=== PATIENT | female | born 1990 | race Caucasian/White ===

== ENCOUNTER 2018-09-06 08:29 | Inpatient (IN) | payer BC, MEDICAID ==
[2018-09-06] MEDS ORDERED: MINERAL OIL PO PRN (11:12)
[2018-09-06] MEDS ORDERED: BRETHINE SUB-Q PRN (11:12)
[2018-09-06] MEDS ORDERED: BRETHINE IVP PRN (11:12)
[2018-09-06] MEDS ORDERED: SUBLIMAZE IV PRN (11:12)
[2018-09-06 11:40] LABS: Hematocrit 31.6 % (30.3-42.9); Hemoglobin 11.1 gm/dl (10.1-14.3); Mean Corpuscular HGB Conc 35 % (30-34); Mean Corpuscular Volume 85 fl (79-97); Platelet Count 275 K/mm3 (140-440); Red Blood Count 3.71 M/mm3 (3.65-5.03); Red Cell Distribution Width 14.8 % (13.2-15.2)
[2018-09-06] MEDS ORDERED: PITOCin/NS 20 UNIT/1000ML DRIP 20 UNITS/1,000 ML BAG IV SCH (12:00)
[2018-09-06] MEDS ORDERED: PITOCin/NS 30 UNIT/500ML 30 UNITS/500 ML BAG IV SCH ×2 (12:00)
[2018-09-06] MEDS: LACTATED RINGERS 1,000 ML IV SCH ×2 (12:07→19:48)
[2018-09-06] MEDS ORDERED: XYLOCAINE 2% INFILTRATI ONE (12:12)
[2018-09-06] MEDS ORDERED: CERVIDIL VG ONE (12:12)
[2018-09-06] MEDS ORDERED: TYLENOL PO ONE (16:18)
--- NOTE | 2018-09-06 19:51 | History and Physical Report ---
History of Present Illness Date of examination: 09/06/18 Date of admission: 09/06/18 08:29 Chief complaint: 27yo Fe , SIVAN 09/12/2018 ([place]), 39w1d, presents to L&D for IOL. Initiated late care with life cycle Survey Operations Director from [facility]. Co-managed with [facility]. GDM. Diet controlled. 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 denies: smoking, alcohol abuse, prescription drug abuse, IV drug use - Obstetrical History Expected Date of Delivery: 09/12/18 Actual Gestation: 39 Week(s) 1 Day(s) : 1 Para: 0 Hx # Term Pregnancies: 0 Number of Pregnancies: 0 Spontaneous Abortions: 0 Induced : 0 Number of Living Children: 0 Medications and Allergies Allergies Allergy/AdvReac Type Severity Reaction Status Date / Time No Known Allergies Allergy Unverified 09/06/18 11:11 Home Medications Medication Instructions Recorded Confirmed Last Taken Type No Known Home Medications [No 09/06/18 09/06/18 Unknown History Reported Home Medications] Active Meds: Active Medications Butorphanol Tartrate (Stadol) 1 mg IV Q2H PRN PRN Reason: Pain, Moderate (4-6) Ephedrine Sulfate (Ephedrine Sulfate) 10 mg IV Q2M PRN PRN Reason: Hypotension Fentanyl (Sublimaze) 100 mcg IV Q2H PRN PRN Reason: Labor Pain Oxytocin/Sodium Chloride (Pitocin/Ns 20 Unit/1000ml Drip) 20 units in 1,000 mls @ 125 mls/hr IV DIRECT PAULO Oxytocin/Sodium Chloride (Pitocin/Ns 30 Unit/500ml) 30 units in 500 mls @ 1 mls/hr IV TITR PAULO; Protocol Oxytocin/Sodium Chloride (Pitocin/Ns 30 Unit/500ml) 30 units in 500 mls @ 2 mls/hr IV TITR PAULO; Protocol Lactated Ringer's (Lactated Ringers) 1,000 mls @ 125 mls/hr IV DIRECT PAULO Last Admin: 09/06/18 12:07 Dose: 125 mls/hr Documented by: Mineral Oil (Mineral Oil) 30 ml PO QHS PRN PRN Reason: Constipation Terbutaline Sulfate (Brethine) 0.25 mg SUB-Q ONCE PRN PRN Reason: Hyperstimulation/Hypertonicity Terbutaline Sulfate (Brethine) 0.25 mg IVP ONCE PRN PRN Reason: Hyperstimulation/Hypertonicity Review of Systems Eyes: normal appearance Cardiovascular: no chest pain, no shortness of breath Respiratory: no shortness of breath Breasts: normal Gastrointestinal: no abdominal pain, no nausea, no vomiting, no diarrhea Genitourinary: normal appearance, vaginal discharge, no leakage of fluid, no dysuria, no pelvic pain, no genital sores, no contractions Integumentary: no rash, no sores, no lesions - Vital Signs Vital signs: Vital Signs Temp 97.9 F 09/06/18 11:49 Temp Pulse Resp BP Pulse Ox 97.9 F 78 121/71 09/06/18 11:49 09/06/18 19:37 09/06/18 19:37 - Physical Exam Breasts: Positive: normal Cardiovascular: Regular rate, Normal S1, Normal S2, No murmurs Lungs: Positive: Clear to auscultation, Normal air movement Abdomen: Positive: normal appearance, soft, normal bowel sounds. Negative: distention Genitourinary (Female): Positive: normal external genitalia, normal perenium Vulva: both: normal Vagina: Positive: normal moisture Uterus: Positive: enlarged (Gravid) Anus/Rectum: Positive: normal perianal skin, heme negative Extremities: Positive: normal - Obstetrical FHR: auscultation normal, category 1 Uterine Contraction Monitor Mode: External Cervical Dilatation: 0 (Per RN) Cervical Effacement Percentage: 0 station: -3 Uterine Tone Measurement Phase: Resting Results Result Diagrams: 09/06/18 09:30 Abnormal lab results 09/06/18 09/06/18 09/06/18 Range/Units 09:30 12:12 16:34 MCHC 35 H (30-34) % POC Glucose 61 L 60 L (70-105) All other labs normal. Assessment and Plan A: Term IUP at 39w1d Category 1 tracing GBS Negative GDM; diet controlled P: Admit to L&D; Routine labor orders Cervidil IOL Accucheck q4
[2018-09-06] MEDS: STADOL IV PRN ×2 (20:24→23:13)
[2018-09-07] MEDS: LACTATED RINGERS 1,000 ML IV SCH ×2 (02:26→13:43)
[2018-09-07] MEDS: STADOL IV PRN ×2 (03:32→06:35)
--- NOTE | 2018-09-07 07:34 | Progress Note ---
Assessment and Plan A: Term IUP at 39w1d Category 1 tracing GBS Negative GDM; diet controlled Cervidil removed; Pitocin 4mu P: Routine labor orders Continue Pitocin IOL Accucheck q4 May have IV pain med/Epidural PRN Anticiapte Subjective - Subjective Date of service: 09/07/18 (07:26) Principal diagnosis: IOL term , GDM; diet controlled Interval history: IOL for term with diet controlled GDM Patient reports: loss of fluid, movement normal, contractions Objective - Vital Signs Vital Signs: Vital Signs - 12hr 09/06/18 09/06/18 09/06/18 19:37 19:38 20:24 Temperature 99.0 F Pulse Rate 78 Respiratory 22 22 Rate Blood Pressure 121/71 O2 Sat by Pulse Oximetry 09/06/18 09/06/18 09/06/18 20:51 21:51 22:51 Temperature Pulse Rate 77 85 82 Respiratory Rate Blood Pressure 113/68 118/69 131/77 O2 Sat by Pulse Oximetry 09/06/18 09/06/18 09/06/18 23:13 23:19 23:51 Temperature 98.7 F Pulse Rate 88 Respiratory 20 Rate Blood Pressure 122/74 O2 Sat by Pulse Oximetry 09/07/18 09/07/18 09/07/18 00:00 00:35 01:49 Temperature 98.9 F Pulse Rate 80 82 Respiratory 18 Rate Blood Pressure 115/75 O2 Sat by Pulse 96 Oximetry 09/07/18 09/07/18 09/07/18 01:50 02:18 02:22 Temperature 98.0 F Pulse Rate 78 85 83 Respiratory 20 Rate Blood Pressure 114/70 O2 Sat by Pulse 97 96 Oximetry 09/07/18 09/07/18 09/07/18 02:23 02:28 02:33 Temperature Pulse Rate 87 82 81 Respiratory Rate Blood Pressure O2 Sat by Pulse 97 96 97 Oximetry 09/07/18 09/07/18 09/07/18 02:38 02:43 02:48 Temperature Pulse Rate 87 81 89 Respiratory Rate Blood Pressure O2 Sat by Pulse 97 96 97 Oximetry 09/07/18 09/07/18 09/07/18 02:53 02:58 03:03 Temperature Pulse Rate 89 84 82 Respiratory Rate Blood Pressure O2 Sat by Pulse 96 97 97 Oximetry 09/07/18 09/07/18 09/07/18 03:08 03:11 03:13 Temperature Pulse Rate 74 79 74 Respiratory Rate Blood Pressure O2 Sat by Pulse 96 94 96 Oximetry 09/07/18 09/07/18 09/07/18 03:18 03:23 03:28 Temperature Pulse Rate 79 82 86 Respiratory Rate Blood Pressure 118/72 O2 Sat by Pulse 97 96 97 Oximetry 09/07/18 09/07/18 09/07/18 03:31 03:32 03:33 Temperature Pulse Rate 104 H 79 Respiratory 24 Rate Blood Pressure O2 Sat by Pulse 93 94 Oximetry 09/07/18 09/07/18 09/07/18 03:35 03:36 03:38 Temperature 98.2 F Pulse Rate 78 77 Respiratory 18 Rate Blood Pressure O2 Sat by Pulse 94 94 Oximetry 09/07/18 09/07/18 09/07/18 03:43 03:48 03:53 Temperature Pulse Rate 79 76 77 Respiratory Rate Blood Pressure O2 Sat by Pulse 94 94 94 Oximetry 09/07/18 09/07/18 09/07/18 03:58 04:03 04:08 Temperature Pulse Rate 86 77 76 Respiratory Rate Blood Pressure O2 Sat by Pulse 97 94 95 Oximetry 09/07/18 09/07/18 09/07/18 04:09 04:13 04:14 Temperature Pulse Rate 79 79 77 Respiratory Rate Blood Pressure O2 Sat by Pulse 94 95 94 Oximetry 09/07/18 09/07/18 09/07/18 04:18 04:23 04:28 Temperature Pulse Rate 81 75 80 Respiratory Rate Blood Pressure 98/59 O2 Sat by Pulse 95 95 95 Oximetry 09/07/18 09/07/18 09/07/18 04:30 04:33 04:36 Temperature Pulse Rate 74 77 78 Respiratory Rate Blood Pressure O2 Sat by Pulse 94 95 94 Oximetry 09/07/18 09/07/18 09/07/18 04:38 04:43 04:44 Temperature Pulse Rate 75 84 76 Respiratory Rate Blood Pressure O2 Sat by Pulse 95 95 94 Oximetry 09/07/18 09/07/18 09/07/18 04:48 04:50 04:53 Temperature Pulse Rate 75 74 84 Respiratory Rate Blood Pressure O2 Sat by Pulse 94 94 96 Oximetry 09/07/18 09/07/18 09/07/18 04:58 05:01 05:03 Temperature Pulse Rate 82 73 77 Respiratory Rate Blood Pressure O2 Sat by Pulse 96 94 95 Oximetry 09/07/18 09/07/18 09/07/18 05:08 05:13 05:18 Temperature Pulse Rate 82 77 82 Respiratory Rate Blood Pressure O2 Sat by Pulse 91 93 95 Oximetry 09/07/18 09/07/18 09/07/18 05:23 05:24 05:25 Temperature Pulse Rate 70 78 81 Respiratory Rate Blood Pressure 113/61 O2 Sat by Pulse 95 93 Oximetry 09/07/18 09/07/18 09/07/18 05:28 05:30 05:33 Temperature Pulse Rate 79 77 81 Respiratory Rate Blood Pressure O2 Sat by Pulse 96 93 97 Oximetry 09/07/18 09/07/18 09/07/18 05:38 05:43 05:48 Temperature Pulse Rate 77 74 78 Respiratory Rate Blood Pressure O2 Sat by Pulse 95 94 95 Oximetry 09/07/18 09/07/18 09/07/18 05:53 05:58 05:59 Temperature Pulse Rate 79 74 79 Respiratory Rate Blood Pressure O2 Sat by Pulse 96 96 93 Oximetry 09/07/18 09/07/18 09/07/18 06:03 06:08 06:13 Temperature Pulse Rate 79 84 77 Respiratory Rate Blood Pressure O2 Sat by Pulse 96 96 97 Oximetry 09/07/18 09/07/18 09/07/18 06:18 06:21 06:22 Temperature Pulse Rate 79 80 81 Respiratory Rate Blood Pressure 101/59 O2 Sat by Pulse 97 94 Oximetry 09/07/18 09/07/18 09/07/18 06:23 06:28 06:33 Temperature Pulse Rate 79 72 81 Respiratory Rate Blood Pressure O2 Sat by Pulse 96 98 97 Oximetry 09/07/18 09/07/18 09/07/18 06:35 06:38 06:39 Temperature Pulse Rate 75 79 Respiratory 18 Rate Blood Pressure O2 Sat by Pulse 95 90 Oximetry 09/07/18 09/07/18 09/07/18 06:43 06:44 06:48 Temperature Pulse Rate 79 76 81 Respiratory Rate Blood Pressure O2 Sat by Pulse 94 94 95 Oximetry 09/07/18 09/07/18 09/07/18 06:49 06:53 06:55 Temperature Pulse Rate 82 82 86 Respiratory Rate Blood Pressure O2 Sat by Pulse 93 93 94 Oximetry 09/07/18 09/07/18 09/07/18 06:58 07:00 07:01 Temperature 98.3 F Pulse Rate 84 87 Respiratory 18 Rate Blood Pressure O2 Sat by Pulse 94 94 Oximetry 09/07/18 09/07/18 09/07/18 07:03 07:08 07:10 Temperature Pulse Rate 81 88 85 Respiratory Rate Blood Pressure O2 Sat by Pulse 94 95 93 Oximetry 09/07/18 09/07/18 09/07/18 07:13 07:15 07:18 Temperature Pulse Rate 86 80 81 Respiratory Rate Blood Pressure O2 Sat by Pulse 95 91 93 Oximetry 09/07/18 09/07/18 09/07/18 07:20 07:22 07:23 Temperature Pulse Rate 80 81 Respiratory 18 Rate Blood Pressure O2 Sat by Pulse 94 96 Oximetry 09/07/18 09/07/18 09/07/18 07:24 07:27 07:28 Temperature Pulse Rate 82 81 76 Respiratory Rate Blood Pressure 118/71 O2 Sat by Pulse 94 97 Oximetry - Exam Breasts: normal Cardiovascular: Regular rate, Normal S1, Normal S2, No murmurs Lungs: Clear to auscultation, Normal air movement Abdomen: Present: normal appearance, soft, normal bowel sounds. Absent: distention Vulva: both: normal Uterus: Present: firm (Gravid) FHR: category 1 Uterine Contraction Monitor Mode: External Cervical Dilatation: 2 (Moderate amt clear fluid noted with exam) Cervical Effacement Percentage: 80 station: 0 Uterine Contraction Pattern: Irregular Uterine Tone Measurement Phase: Resting Uterine Contraction Intensity: Mild Extremities: normal Deep Tendon Reflex Grade: Normal +2 - Labs Labs: Abnormal Labs 09/06/18 09/06/18 09/06/18 09:30 12:12 16:34 MCHC 35 H POC Glucose 61 L 60 L Laboratory Results - last 24 hr 09/06/18 09/06/18 09/06/18 09:30 09:30 12:12 WBC 6.0 RBC 3.71 Hgb 11.1 Hct 31.6 MCV 85 MCH 30 MCHC 35 H RDW 14.8 Plt Count 275 POC Glucose 61 L Blood Type AB POSITIVE Antibody Screen Negative 09/06/18 09/06/18 09/07/18 16:34 20:37 00:39 WBC RBC Hgb Hct MCV MCH MCHC RDW Plt Count POC Glucose 60 L 83 70 Blood Type Antibody Screen 09/07/18 04:34 WBC RBC Hgb Hct MCV MCH MCHC RDW Plt Count POC Glucose 89 Blood Type Antibody Screen
[2018-09-07] MEDS ORDERED: MARCAINE 0.25% INFILTRATI ONE (09:58)
[2018-09-07] MEDS ORDERED: NARCAN 2 MG/2 ML IV PRN (10:22)
--- NOTE | 2018-09-07 10:22 | Anesthesia Consultation ---
Anesthesia Consult and Med Hx Date of service: 09/07/18 - Airway Anesthetic Teeth Evaluation: Good ROM Head & Neck: Adequate Mental/Hyoid Distance: Adequate Mallampati Class: Class II - Pulmonary Exam CTA: Yes - Cardiac Exam Cardiac Exam: RRR - Pre-Operative Health Status ASA Pre-Surgery Classification: ASA2 Proposed Anesthetic Plan: Epidural - Pulmonary Hx Asthma: No COPD: No Hx Pneumonia: No - Cardiovascular System Hx Hypertension: No - Central Nervous System Hx Seizures: No Hx Psychiatric Problems: No - Endocrine Hx Renal Disease: No Hx End Stage Renal Disease: No Hx Hypothyroidism: No Hx Hyperthyroidism: No - Hematic Hx Anemia: No Hx Sickle Cell Disease: No - Other Systems Hx Alcohol Use: No
--- NOTE | 2018-09-07 10:36 | Progress Note ---
Assessment and Plan A: Term IUP at 39w1d Category 1 tracing GBS Negative GDM; diet controlled IUPC placed Epidural just placed P: Routine labor orders Continue Pitocin IOL Accucheck q4 Anticiapte Subjective - Subjective Date of service: 09/07/18 Principal diagnosis: IOL term , GDM; diet controlled Interval history: IOL for term with diet controlled GDM Patient reports: loss of fluid, movement normal, contractions Objective - Vital Signs Vital Signs: Vital Signs - 12hr 09/06/18 09/06/18 09/06/18 22:51 23:13 23:19 Temperature 98.7 F Pulse Rate 82 Respiratory 20 Rate Blood Pressure 131/77 O2 Sat by Pulse Oximetry 09/06/18 09/07/18 09/07/18 23:51 00:00 00:35 Temperature 98.9 F Pulse Rate 88 80 Respiratory 18 Rate Blood Pressure 122/74 O2 Sat by Pulse 96 Oximetry 09/07/18 09/07/18 09/07/18 01:49 01:50 02:18 Temperature 98.0 F Pulse Rate 82 78 85 Respiratory 20 Rate Blood Pressure 115/75 O2 Sat by Pulse 97 96 Oximetry 09/07/18 09/07/18 09/07/18 02:22 02:23 02:28 Temperature Pulse Rate 83 87 82 Respiratory Rate Blood Pressure 114/70 O2 Sat by Pulse 97 96 Oximetry 09/07/18 09/07/18 09/07/18 02:33 02:38 02:43 Temperature Pulse Rate 81 87 81 Respiratory Rate Blood Pressure O2 Sat by Pulse 97 97 96 Oximetry 09/07/18 09/07/18 09/07/18 02:48 02:53 02:58 Temperature Pulse Rate 89 89 84 Respiratory Rate Blood Pressure O2 Sat by Pulse 97 96 97 Oximetry 09/07/18 09/07/18 09/07/18 03:03 03:08 03:11 Temperature Pulse Rate 82 74 79 Respiratory Rate Blood Pressure O2 Sat by Pulse 97 96 94 Oximetry 09/07/18 09/07/18 09/07/18 03:13 03:18 03:23 Temperature Pulse Rate 74 79 82 Respiratory Rate Blood Pressure 118/72 O2 Sat by Pulse 96 97 96 Oximetry 09/07/18 09/07/18 09/07/18 03:28 03:31 03:32 Temperature Pulse Rate 86 104 H Respiratory 24 Rate Blood Pressure O2 Sat by Pulse 97 93 Oximetry 09/07/18 09/07/18 09/07/18 03:33 03:35 03:36 Temperature 98.2 F Pulse Rate 79 78 Respiratory 18 Rate Blood Pressure O2 Sat by Pulse 94 94 Oximetry 09/07/18 09/07/18 09/07/18 03:38 03:43 03:48 Temperature Pulse Rate 77 79 76 Respiratory Rate Blood Pressure O2 Sat by Pulse 94 94 94 Oximetry 09/07/18 09/07/18 09/07/18 03:53 03:58 04:03 Temperature Pulse Rate 77 86 77 Respiratory Rate Blood Pressure O2 Sat by Pulse 94 97 94 Oximetry 09/07/18 09/07/18 09/07/18 04:08 04:09 04:13 Temperature Pulse Rate 76 79 79 Respiratory Rate Blood Pressure O2 Sat by Pulse 95 94 95 Oximetry 09/07/18 09/07/18 09/07/18 04:14 04:18 04:23 Temperature Pulse Rate 77 81 75 Respiratory Rate Blood Pressure 98/59 O2 Sat by Pulse 94 95 95 Oximetry 09/07/18 09/07/18 09/07/18 04:28 04:30 04:33 Temperature Pulse Rate 80 74 77 Respiratory Rate Blood Pressure O2 Sat by Pulse 95 94 95 Oximetry 09/07/18 09/07/18 09/07/18 04:36 04:38 04:43 Temperature Pulse Rate 78 75 84 Respiratory Rate Blood Pressure O2 Sat by Pulse 94 95 95 Oximetry 09/07/18 09/07/18 09/07/18 04:44 04:48 04:50 Temperature Pulse Rate 76 75 74 Respiratory Rate Blood Pressure O2 Sat by Pulse 94 94 94 Oximetry 09/07/18 09/07/18 09/07/18 04:53 04:58 05:01 Temperature Pulse Rate 84 82 73 Respiratory Rate Blood Pressure O2 Sat by Pulse 96 96 94 Oximetry 09/07/18 09/07/18 09/07/18 05:03 05:08 05:13 Temperature Pulse Rate 77 82 77 Respiratory Rate Blood Pressure O2 Sat by Pulse 95 91 93 Oximetry 09/07/18 09/07/18 09/07/18 05:18 05:23 05:24 Temperature Pulse Rate 82 70 78 Respiratory Rate Blood Pressure 113/61 O2 Sat by Pulse 95 95 Oximetry 09/07/18 09/07/18 09/07/18 05:25 05:28 05:30 Temperature Pulse Rate 81 79 77 Respiratory Rate Blood Pressure O2 Sat by Pulse 93 96 93 Oximetry 09/07/18 09/07/18 09/07/18 05:33 05:38 05:43 Temperature Pulse Rate 81 77 74 Respiratory Rate Blood Pressure O2 Sat by Pulse 97 95 94 Oximetry 09/07/18 09/07/18 09/07/18 05:48 05:53 05:58 Temperature Pulse Rate 78 79 74 Respiratory Rate Blood Pressure O2 Sat by Pulse 95 96 96 Oximetry 09/07/18 09/07/18 09/07/18 05:59 06:03 06:08 Temperature Pulse Rate 79 79 84 Respiratory Rate Blood Pressure O2 Sat by Pulse 93 96 96 Oximetry 09/07/18 09/07/18 09/07/18 06:13 06:18 06:21 Temperature Pulse Rate 77 79 80 Respiratory Rate Blood Pressure O2 Sat by Pulse 97 97 94 Oximetry 09/07/18 09/07/18 09/07/18 06:22 06:23 06:28 Temperature Pulse Rate 81 79 72 Respiratory Rate Blood Pressure 101/59 O2 Sat by Pulse 96 98 Oximetry 09/07/18 09/07/18 09/07/18 06:33 06:35 06:38 Temperature Pulse Rate 81 75 Respiratory 18 Rate Blood Pressure O2 Sat by Pulse 97 95 Oximetry 09/07/18 09/07/18 09/07/18 06:39 06:43 06:44 Temperature Pulse Rate 79 79 76 Respiratory Rate Blood Pressure O2 Sat by Pulse 90 94 94 Oximetry 09/07/18 09/07/18 09/07/18 06:48 06:49 06:53 Temperature Pulse Rate 81 82 82 Respiratory Rate Blood Pressure O2 Sat by Pulse 95 93 93 Oximetry 09/07/18 09/07/18 09/07/18 06:55 06:58 07:00 Temperature 98.3 F Pulse Rate 86 84 Respiratory 18 Rate Blood Pressure O2 Sat by Pulse 94 94 Oximetry 09/07/18 09/07/18 09/07/18 07:01 07:03 07:08 Temperature Pulse Rate 87 81 88 Respiratory Rate Blood Pressure O2 Sat by Pulse 94 94 95 Oximetry 09/07/18 09/07/18 09/07/18 07:10 07:13 07:15 Temperature Pulse Rate 85 86 80 Respiratory Rate Blood Pressure O2 Sat by Pulse 93 95 91 Oximetry 09/07/18 09/07/18 09/07/18 07:18 07:20 07:22 Temperature Pulse Rate 81 80 Respiratory 18 Rate Blood Pressure O2 Sat by Pulse 93 94 Oximetry 09/07/18 09/07/18 09/07/18 07:23 07:24 07:27 Temperature Pulse Rate 81 82 81 Respiratory Rate Blood Pressure 118/71 O2 Sat by Pulse 96 94 Oximetry 09/07/18 09/07/18 09/07/18 07:28 07:33 07:38 Temperature Pulse Rate 76 76 75 Respiratory Rate Blood Pressure O2 Sat by Pulse 97 95 95 Oximetry 09/07/18 09/07/18 09/07/18 07:43 07:45 07:48 Temperature Pulse Rate 80 79 79 Respiratory Rate Blood Pressure O2 Sat by Pulse 96 93 96 Oximetry 09/07/18 09/07/18 09/07/18 07:53 07:55 07:58 Temperature Pulse Rate 82 77 86 Respiratory Rate Blood Pressure O2 Sat by Pulse 96 94 96 Oximetry 09/07/18 09/07/18 09/07/18 08:00 08:03 08:08 Temperature Pulse Rate 77 81 81 Respiratory Rate Blood Pressure O2 Sat by Pulse 94 95 95 Oximetry 09/07/18 09/07/18 09/07/18 08:09 08:13 08:15 Temperature Pulse Rate 78 82 77 Respiratory Rate Blood Pressure O2 Sat by Pulse 94 93 93 Oximetry 09/07/18 09/07/18 09/07/18 08:18 08:22 08:23 Temperature Pulse Rate 81 83 76 Respiratory Rate Blood Pressure 120/72 O2 Sat by Pulse 94 94 94 Oximetry 09/07/18 09/07/18 09/07/18 08:28 08:31 08:33 Temperature Pulse Rate 86 80 83 Respiratory Rate Blood Pressure O2 Sat by Pulse 96 94 96 Oximetry 09/07/18 09/07/18 09/07/18 08:38 08:39 08:43 Temperature Pulse Rate 84 84 77 Respiratory Rate Blood Pressure O2 Sat by Pulse 96 94 97 Oximetry 09/07/18 09/07/18 09/07/18 08:45 08:48 08:53 Temperature Pulse Rate 80 81 88 Respiratory Rate Blood Pressure O2 Sat by Pulse 93 95 96 Oximetry 09/07/18 09/07/18 09/07/18 08:56 08:58 09:09 Temperature 98.2 F Pulse Rate 80 83 Respiratory Rate Blood Pressure O2 Sat by Pulse 94 95 Oximetry 09/07/18 09/07/18 09/07/18 09:24 09:49 09:54 Temperature Pulse Rate 81 81 80 Respiratory Rate Blood Pressure 131/75 O2 Sat by Pulse 95 95 Oximetry 09/07/18 09/07/18 09/07/18 09:59 10:01 10:03 Temperature Pulse Rate 70 90 86 Respiratory Rate Blood Pressure 119/66 117/71 O2 Sat by Pulse 97 Oximetry 09/07/18 09/07/18 09/07/18 10:04 10:05 10:07 Temperature Pulse Rate 81 83 85 Respiratory Rate Blood Pressure 110/59 115/70 O2 Sat by Pulse 97 Oximetry 09/07/18 09/07/18 09/07/18 10:09 10:11 10:13 Temperature Pulse Rate 95 H 97 H 89 Respiratory Rate Blood Pressure 123/74 119/59 127/74 O2 Sat by Pulse 96 Oximetry 09/07/18 09/07/18 09/07/18 10:14 10:15 10:17 Temperature Pulse Rate 86 89 88 Respiratory Rate Blood Pressure 129/76 127/76 O2 Sat by Pulse 97 Oximetry 09/07/18 09/07/18 10:19 10:21 Temperature Pulse Rate 89 91 H Respiratory Rate Blood Pressure 130/73 127/74 O2 Sat by Pulse 97 Oximetry - Exam Cardiovascular: Regular rate, Normal S1, Normal S2 Abdomen: Present: normal appearance, soft Vulva: both: normal FHR: category 1 Uterine Contraction Monitor Mode: External Cervical Dilatation: 3 (IUPC placed in gentle fashion. ) Cervical Effacement Percentage: 80 station: 0 Uterine Contraction Pattern: Irregular Uterine Contraction Intensity: Moderate Extremities: normal Deep Tendon Reflex Grade: Normal +2 - Labs Labs: Abnormal Labs 09/06/18 09/06/18 09/06/18 09:30 12:12 16:34 MCHC 35 H POC Glucose 61 L 60 L Laboratory Results - last 24 hr 09/06/18 09/06/18 09/06/18 09:30 09:30 12:12 WBC 6.0 RBC 3.71 Hgb 11.1 Hct 31.6 MCV 85 MCH 30 MCHC 35 H RDW 14.8 Plt Count 275 POC Glucose 61 L Blood Type AB POSITIVE Antibody Screen Negative 09/06/18 09/06/18 09/07/18 16:34 20:37 00:39 WBC RBC Hgb Hct MCV MCH MCHC RDW Plt Count POC Glucose 60 L 83 70 Blood Type Antibody Screen 09/07/18 04:34 WBC RBC Hgb Hct MCV MCH MCHC RDW Plt Count POC Glucose 89 Blood Type Antibody Screen
[2018-09-07] MEDS: fentaNYL-BUPIV 2 MCG/ML-0.125% 200 MCG/100 ML BAG EPIDURAL SCH ×2 (10:41→18:46)
[2018-09-07] MEDS ORDERED: ZOFRAN IV PRN (13:09)
[2018-09-07] MEDS ORDERED: AMPICILLIN/NS 2 GM/100 ML 2 GM/100 ML BAG IV ONE (17:00)
--- NOTE | 2018-09-07 17:53 | Event Note ---
Date: 09/07/18 Assumed care of patient. Last cervical exam at 4:30 PM per RN report was /0. Induction for GDM (diet controlled). Category 1 heart rate tracing.
--- NOTE | 2018-09-07 19:04 | Event Note ---
Date: 09/07/18 SVE 5-6/90/-1. Afebrile. Category 1 heart rate tracing. Patient in upright position. Comfortable.
[2018-09-07] MEDS ORDERED: TYLENOL PO ONE (20:12)
[2018-09-07] MEDS ORDERED: GENTAMICIN 100 MG in NACL 0.9% 100 ML IV SCH (20:15)
--- NOTE | 2018-09-07 20:25 | Event Note ---
Date: 09/07/18 Maternal temp. 99.9 orally. Tylenol ordered. Ampicillin and Gentamicin ordered. Category [address] Haro notified of temp. and interventions.
[2018-09-07] MEDS ORDERED: AMPICILLIN/NS 1 GM/50 ML 1 GM/50 ML BAG IV SCH (21:00)
--- NOTE | 2018-09-07 22:14 | Event Note ---
Date: 09/07/18 SVE: cervix unchanged. Normal FHR baseline, no decelerations noted, minimal variability noted. Patient in lateral position, oxygen per face mask, IV fluid bolus given. Dr. Haro notified of prolonged ROM, unchanged cervix, and minimal variability. Dr. Haro recommends section. Informed patient of family of Dr. Haro's recommendation for C/S. Patient refused section. Informed Dr. Haro of patient's refusal of section.
[2018-09-07 22:17] LABS: Alanine Aminotransferase 36 units/L (7-56); Albumin 2.7 g/dL (3.9-5); BUN/Creatinine Ratio 14; Blood Urea Nitrogen 10 mg/dL (7-17); Calcium 8.5 mg/dL (8.4-10.2); Hemolysis Index 5
[2018-09-07] MEDS ORDERED: AMPICILLIN/NS 2 GM/100 ML 2 GM/100 ML BAG IV SCH (23:00)
--- NOTE | 2018-09-08 00:30 | Event Note ---
Date: 09/08/18 No cervical change on SVE. Pt. states she now would like to have a section. Called Dr. Haro and informed him patient now wants a section.
[2018-09-08] MEDS ORDERED: REGLAN IV ONE (00:31)
[2018-09-08] MEDS ORDERED: PEPCID IV ONE (00:31)
[2018-09-08] MEDS ORDERED: BICITRA PO ONE (00:31)
[2018-09-08] MEDS ORDERED: PITOCin/NS 20 UNIT/1000ML DRIP 20 UNITS/1,000 ML BAG IV SCH ×2 (01:00→03:00)
[2018-09-08] MEDS ORDERED: LACTATED RINGERS 1,000 ML IV SCH ×2 (01:00→19:00)
[2018-09-08] MEDS ORDERED: ANCEF/STERILE WATER 2 GM/20 ML 2 GM/20 ML SYRINGE IV NR (01:00)
[2018-09-08] MEDS ORDERED: XYLOCAINE 2%/ EPI 1:200,000 INFILTRATI ONE (01:16)
[2018-09-08] MEDS ORDERED: NACL 0.9% IR ONE (01:32)
[2018-09-08] MEDS ORDERED: WATER FOR IRRIG STERILE IR ONE (01:32)
[2018-09-08] MEDS ORDERED: METHERGINE IM ONE ×2 (01:42)
[2018-09-08] MEDS ORDERED: TORADOL ONE (01:57)
[2018-09-08] MEDS ORDERED: DECADRON ONE (01:57)
[2018-09-08] MEDS ORDERED: ZOFRAN ONE (01:57)
[2018-09-08] MEDS ORDERED: DILAUDID ONE (01:58)
[2018-09-08] MEDS ORDERED: TUCKS PAD TP PRN (02:08)
[2018-09-08] MEDS ORDERED: LANSINOH TP PRN (02:08)
[2018-09-08] MEDS ORDERED: TORADOL IV PRN (02:08)
[2018-09-08] MEDS ORDERED: NARCAN 0.4 MG/1 ML IV PRN ×2 (02:08→02:23)
[2018-09-08] MEDS ORDERED: MYLICON PO PRN (02:08)
[2018-09-08] MEDS ORDERED: D50W (25GM) Syringe IV PRN (02:08)
[2018-09-08] MEDS ORDERED: SENOKOT PO PRN (02:08)
[2018-09-08] MEDS ORDERED: MILK OF MAGNESIA PO PRN (02:08)
[2018-09-08] MEDS ORDERED: TYLENOL PO PRN (02:08)
--- NOTE | 2018-09-08 02:22 | Anesthesia Day of Surgery ---
Anesthesia Day of Surgery - Day of Surgery Patient Examined: Yes Patient H&P Reviewed: Yes Patient is NPO: Yes
[2018-09-08] MEDS ORDERED: ZOFRAN IV PRN (02:23)
[2018-09-08] MEDS ORDERED: PHENERGAN PO PRN (02:23)
[2018-09-08] MEDS ORDERED: PHENERGAN PR PRN (02:23)
[2018-09-08] MEDS ORDERED: MORPHINE IV PRN (02:23)
--- NOTE | 2018-09-08 02:23 | Operative Report ---
Operative Report Operative Report: Date of procedure: 09/08/2018 Pre-operative diagnosis: 1. Intrauterine at 39-3/7 weeks 2. Gestat ional diabetes 3. Failure to progress 4. tachycardia Post-operative diagnosis: Same Procedure name(s): Primary low transverse section Surgeon: Buck Haro MD Licensed Esthetician: None Anesthesia: Spinal anesthesia by Randolph Kennedy CRNA EBL: 400 mls Findings: A 3449 g female Apgars 8 at 1 minute and 9 at 5 minutes. Nuchal cord 1. Clear amniotic fluid. Normal uterus. Normal tubes and ovaries bilaterally. Procedure: After the patient was prepped and draped in usual sterile fashion, and after satisfactory level of epidural anesthesia was obtained, the skin knife was used to make a transverse skin incision. The incision was excised down to layer of the fascia, which was nicked in the midline and extended laterally using the Bovie cautery. The rectus muscles were dissected off the rectus fascia both superiorly and inferiorly. The rectus bellies in the midline, and the peritoneum was entered under direct visualization. The peritoneal incision was extended superiorly and inferiorly. A bladder flap was created and the bladder blade was then placed. The uterus was scored in a curvilinear linear fashion, entered in the midline revealing clear amniotic fluid. The 's head was delivered onto the surgical field, nuchal cord 1 easily reduced and the oropharynx and nasopharynx were bulb suctioned. The rest of the infant's body was delivered, cord was doubly clamped and cut and the infant was handed to the waiting respiratory team. The placenta was manually removed from the uterus, and the uterus removed from its normal anatomical position. After gentle uterine lavage, the incision was inspected and found to be without extensions. It was then closed in 2 layers using 0 Vicryl suture in a running interlocking fashion, the second layer imbricating the first. After good hemostasis was achieved, copious amounts or irrigation was performed, and the gutters were suctioned free of blood and blood clots. Tisseel sealant was sprayed across the uterine incision. The uterus was then returned to its normal anatomical position, and after excellent hemostasis assured, the peritoneum was re-approximated using 3-0 Vicryl suture in a running interlocking fashion, and then the rectus muscles were re-approximated using 3-0 Vicryl suture in a [id number] configuration. The fascia was then re-approximated using 0 Vicryl suture in running interlocking fashion. The subcutaneous layer was made hemostatic using Bovie cautery, the Tisseel sealant was sprayed across the fascial incision and the skin edges re-approximated using 4-0 Vicryl suture in a sub-cuticular fashion. Patient tolerated the procedure well was transported to recovery in stable condition.
--- NOTE | 2018-09-08 02:23 | Post Anesthesia Evaluation ---
- Post Anesthesia Evaluation Patient Participated: Yes Airway Patent: Yes Stable Respiratory Function: Yes Nausea/Vomiting: No Temp > 96.8F: Yes Pain Manageable: Yes Adequeate Hydration: Yes Anesthesia Complications: No Block Receding Appropriately: Yes Patient on Ventilator: No
[2018-09-08] MEDS ORDERED: SODIUM CHLORIDE FLUSH SYRINGE 10 ML IV PRN ×2 (03:00)
[2018-09-08] MEDS ORDERED: D5LR 1,000 ML IV SCH (03:00)
[2018-09-08] MEDS: METHERGINE PO SCH ×3 (05:04→22:12)
[2018-09-08] MEDS: ANCEF/NS 1 GM/50 ML 1 GM/50 ML BAG IV SCH ×2 (10:31→16:30)
[2018-09-08] MEDS: PRENATAL VITAMIN PO SCH (10:34)
[2018-09-08] MEDS: FEOSOL PO SCH (10:34)
[2018-09-08] MEDS: HumuLIN R SUB-Q SCH ×3 (11:14→16:31)
[2018-09-08] MEDS: DILAUDID IV PRN ×2 (15:16→22:33)
[2018-09-08 16:06] LABS: Hematocrit 26.9 % (30.3-42.9); Hemoglobin 8.9 gm/dl (10.1-14.3)
[2018-09-08] MEDS: PERCOCET 5/325 PO PRN (19:44)
[2018-09-08] MEDS ORDERED: AMMONIA INHALANT IH ONE (21:22)
[2018-09-09] MEDS ORDERED: M-M-R II VACCINE SUB-Q ONE (02:10)
[2018-09-09] MEDS: PERCOCET 5/325 PO PRN (05:47)
[2018-09-09] MEDS: IBUPROFEN PO PRN ×3 (05:48→23:45)
[2018-09-09] MEDS ORDERED: BOOSTRIX IM ONE (06:00)
[2018-09-09] MEDS: HumuLIN R SUB-Q SCH ×4 (07:30→22:05)
[2018-09-09] MEDS: FEOSOL PO SCH (10:17)
[2018-09-09] MEDS: PRENATAL VITAMIN PO SCH (10:17)
--- NOTE | 2018-09-09 10:46 | Progress Note ---
Assessment and Plan A: /postop day 1 S/P primary low transverse section. Anemia secondary to and blood loss. GDM, diet controlled. P: Oral iron supplementation. Encouraged ambulation. Subjective - Subjective Date of service: 09/09/18 Principal diagnosis: /postop day 1 S/P primary LTCS Interval history: /postop day 1 S/P primary low transverse section. Doing well. Patient reports small amount of lochia. She is ambulating well, voiding without difficulty, passing gas, and tolerating a regular diet. Patient denies headache, chest pain, cough, shortness of breath, dizziness, leg pain, or heavy bleeding. Patient reports: appetite normal, voiding normally, pain well controlled, flatus, ambulating normally, no dizzy ambulation, no nauseated [place]: doing well Objective - Vital Signs Latest vital signs: Vital Signs Temp Pulse Resp BP BP Pulse Ox 09/09/18 08:30 97.5 F L 83 20 110/60 09/09/18 01:12 97.6 F 78 18 100/67 93 09/08/18 21:33 97.6 F 89 18 109/70 95 09/08/18 16:50 97.9 F 72 16 103/70 96 09/08/18 15:16 16 09/08/18 12:10 98.1 F 74 18 106/57 Intake and Output 09/08/18 09/09/18 09/09/18 23:59 07:59 15:59 Intake Total 240 490 240 Output Total 900 1200 Balance -660 -710 240 Intake: Oral 240 Intake, Free Water 240 490 Output: Urine 900 1200 Void 900 1200 Other: Total, Intake Amount 240 Total, Output Amount 900 600 # Voids Void 1 - Exam Cardiovascular: Present: Regular rate, Normal S1, Normal S2, No murmurs Lungs: Present: Clear to auscultation Abdomen: Present: normal appearance, soft, normal bowel sounds. Absent: distention, tenderness, guarding, rigidity Uterus: Present: normal, firm, fundal height below umbilicus. Absent: bogginess, tenderness Extremities: Present: normal, edema (bilateral pedal edema). Absent: tenderness Incision: Present: normal, dry, intact - Labs Labs: Abnormal lab results 09/08/18 09/08/18 Range/Units 10:36 15:40 Hgb 8.9 L (10.1-14.3) gm/dl Hct 26.9 L (30.3-42.9) % POC Glucose 160 H (70-105)
[2018-09-09] MEDS: NORCO 5/325 PO PRN ×2 (14:47→23:46)
--- NOTE | 2018-09-09 21:05 | Event Note ---
Date: 09/09/18 Bilateral lower extremity edema noted, L=R. BP normal. No erythema, pain, or palpable cord. Patient has been sitting today with her legs hanging down. Instructed patient to elevate her legs when sitting; instructed her to continue to ambulate frequently. To use SCDs while in bed. Patient's nurse informed of all of above.
[2018-09-10] MEDS: HumuLIN R SUB-Q SCH ×4 (07:41→21:55)
[2018-09-10] MEDS: IBUPROFEN PO PRN ×2 (07:57→20:31)
--- NOTE | 2018-09-10 10:24 | Progress Note ---
Assessment and Plan - Patient Problems (1) S/P primary low transverse Current Visit: Yes Status: Acute Plan to address problem: POD 2 - stable Continue routine postop orders Ambulation encouraged as tolerated Discussed relief measures for edema Continue abdominal binder prn Discharge to home 09/11/18 Follow up at [facility] as needed or in 1 week for incision check (2) Gestational diabetes mellitus (GDM) Current Visit: Yes Status: Acute Qualifiers: Gestational diabetes mellitus control: diet-controlled Trimester: third trimester Qualified Code(s): O24.410 - Gestational diabetes mellitus in , diet controlled Plan to address problem: Blood glucose stable (3) Anemia due to blood loss, acute Current Visit: Yes Status: Acute Plan to address problem: Asymptomatic Continue iron therapy Subjective - Subjective Date of service: 09/10/18 Principal diagnosis: POD #2, s/p Primary LTCS Interval history: see H&P, OB Progress Notes, Event Notes, Operative Report and 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 Progress Note Patient reports: appetite normal, voiding normally, pain well controlled, flatus, ambulating normally, other (reports BLE edema), no dizzy ambulation, no bowel movement [place]: doing well, nursing well Objective - Vital Signs Latest vital signs: Vital Signs Temp Pulse Resp BP BP Pulse Ox 09/10/18 09:08 98.0 F 97 H 16 115/70 96 09/10/18 07:57 14 09/09/18 23:39 98.2 F 20 113/69 09/09/18 16:15 97.8 F 101 H 20 119/71 Intake and Output 09/09/18 09/10/18 09/10/18 23:59 07:59 15:59 Intake Total 120 Balance 120 Intake: Oral 120 Other: Total, Intake Amount 120 # Voids Void 1 - Exam Cardiovascular: Present: Regular rate Lungs: Present: Clear to auscultation Abdomen: Present: normal appearance, soft Vulva: both: normal Uterus: Present: normal, firm, fundal height below umbilicus Extremities: Present: edema (2+ BLE) Incision: Present: normal, dry, intact, other (steri strips in place) Comments: scant lochia - Labs Labs: Abnormal lab results 09/09/18 09/10/18 Range/Units 17:02 07:41 POC Glucose 67 L 65 L (70-105)
--- NOTE | 2018-09-10 10:28 | Discharge Summary ---
Providers - Providers Date of Admission: 09/06/18 08:29 Date of discharge: 09/11/18 Attending physician: DARYN MIRZA MD Primary care physician: DARYN MIRZA MD Hospitalization Reason for admission: induction of labor (GDM), IUP at term Delivery: Procedure: primary low transverse Episiotomy: none Laceration: none Incision: normal, dry, intact, other (steri strips in place) Other procedures: none complications: none Discharge diagnosis: IUP at term delivered [place] baby: female Hospital course: Uncomplicated Condition at discharge: Stable Disposition: DC-01 TO HOME OR SELFCARE - Discharge Diagnoses (1) S/P primary low transverse Status: Acute (2) Gestational diabetes mellitus (GDM) Status: Acute Qualifiers: Gestational diabetes mellitus control: diet-controlled Trimester: third trimester Qualified Code(s): O24.410 - Gestational diabetes mellitus in , diet controlled Comment: Blood glucose stable (3) Anemia due to blood loss, acute Status: Acute Comment: Asymptomatic Continue iron therapy Plan - Discharge Medications Prescriptions: Ferrous Sulfate [Feosol 325 MG tab] 325 mg PO BID #60 tablet Ibuprofen [Motrin] 800 mg PO Q8HR PRN #30 tablet PRN Reason: Pain, Mild (1-3) HYDROcodone/APAP 5-325 [[place] 5/325] 1 each PO Q6HR PRN #30 tablet PRN Reason: Pain Vit-Fe Fumar-FA [ Vitamin] 1 tab PO QDAY #30 tablet - Provider Discharge Summary Activity: routine, no sex for 6 weeks, no heavy lifting 4 weeks, no strenuous exercise Diet: routine Instructions: routine Additional instructions: [] Smoking cessation referral if applicable(refer to patient education folder for contact #) [] Refer to [facility] Booklet Call your doctor immediately for: * Fever > 100.5 * Heavy vaginal bleeding ( >1 pad per hour) * Severe persistent headache * Shortness of breath * Reddened, hot, painful area to leg or breast * Drainage or odor from incision. * Keep incision clean and dry at all times and follow doctor's instructions regarding bathing/showering - Follow up plan Follow up: DARYN MIRZA MD [Primary Care Provider] - 7 Days (Follow up at [facility] as needed or in 1 week for incision check)
[2018-09-10] MEDS: PRENATAL VITAMIN PO SCH (11:09)
[2018-09-10] MEDS: FEOSOL PO SCH (11:09)
[2018-09-10] MEDS: NORCO 5/325 PO PRN ×2 (11:09→20:31)
[2018-09-10] MEDS: PERCOCET 5/325 PO PRN (15:28)
[2018-09-11] MEDS: PERCOCET 5/325 PO PRN (05:47)
[2018-09-11 12:41] VITALS: BP 143/73
== END 2018-09-11 09:09 | disposition home or self-care (01) | DRG 787 ==
LOC: LD 08:29 → OB 09-08 04:20
PROVIDERS: ADMIT Obstetrics & Gynecology; ATTEND Obstetrics & Gynecology
PROC: 10D00Z1 Extraction of Products of Conception, Low, Open Approach (ICD-10-PCS; principal; 2018-09-08)
PROC: 3E0234Z Introduction of Serum, Toxoid and Vaccine into Muscle, Percutaneous Approach (ICD-10-PCS; 2018-09-09)
DX: O24.410 Gestational diabetes mellitus in pregnancy, diet controlled (principal); D62 Acute posthemorrhagic anemia; Z3A.39 39 weeks gestation of pregnancy; Z37.0 Single live birth; Z23 Encounter for immunization; Z82.49 Family history of ischemic heart disease and other diseases of the circulatory system; O76 Abnormality in fetal heart rate and rhythm complicating labor and delivery; O69.81X0 Labor and delivery complicated by cord around neck, without compression, not applicable or unspecified; O90.81 Anemia of the puerperium
CPT/HCPCS: 36415; 59200; 80053; 82962; 85014; 85018; 85027; 86592; 86850; 86900; 86901; G0378; J0290; J0595; J0690; J1100; J1170; J1580; J1815; J1885; J2210; J2405; J2590; J2765; J3010; J7120; J7121